=== PATIENT | female | born 2000 | race Caucasian/White ===

== ENCOUNTER 2023-11-01 01:55 | Emergency (ER) | payer BC ==
[2023-11-01 02:12] VITALS: BP 132/96; PULSE 62; RESP 14; TEMP 99; BMI 20.5
[2023-11-01] MEDS ORDERED: KETOROLAC TROMETHAMINE 30 MG/1 ML VIAL ONE (02:28)
[2023-11-01] MEDS ORDERED: ONDANSETRON *ODT* 4 MG TABLET ONE (02:28)
[2023-11-01] MEDS: ONDANSETRON *ODT* 4 MG TABLET SL ONE (02:31)
[2023-11-01] MEDS ORDERED: FAMOTIDINE 20 MG TABLET ONE (02:36)
[2023-11-01] MEDS ORDERED: ACETAMINOPHEN 325 MG TABLET (FP) ONE (02:36)
[2023-11-01] MEDS: KETOROLAC TROMETHAMINE 30 MG/1 ML VIAL IM ONE (02:40)
[2023-11-01] MEDS: FAMOTIDINE 20 MG TABLET PO ONE (02:40)
[2023-11-01] MEDS: ACETAMINOPHEN 325 MG TABLET (FP) PO ONE (02:41)
== END 2023-11-01 03:07 | disposition home or self-care (01) ==
LOC: FER 01:55
PROC: 3E0133Z Introduction of Anti-inflammatory into Subcutaneous Tissue, Percutaneous Approach (ICD-10-PCS; principal; 2023-11-01)
DX: R19.7 Diarrhea, unspecified (principal); R11.0 Nausea; K62.5 Hemorrhage of anus and rectum
CPT/HCPCS: 81025; 99284-25; Q0162